=== PATIENT | male | born 1980 | race African-American/Black ===

== ENCOUNTER 2022-02-26 12:43 | Emergency (ER) | payer SELFPAY ==
[2022-02-26] MEDS ORDERED: Ketorolac 60 MG/2 ML SDV IM ONE (14:01)
== END 2022-02-26 17:13 | disposition home or self-care (01) ==
LOC: MW.ED 12:43
DX: U07.1 COVID-19 (principal); I10 Essential (primary) hypertension; F17.210 Nicotine dependence, cigarettes, uncomplicated; Z79.899 Other long term (current) drug therapy
CPT/HCPCS: 87635; 96372; 99283; J1885; U0002